=== PATIENT | female | born 1980 | race Caucasian/White ===

== ENCOUNTER 2018-09-30 14:34 | Emergency (ER) | payer SELFPAY ==
--- NOTE | 2018-09-30 15:07 | RAD ---
XR Hand Rt 3 View STANDARD: 09/30/2018 2:45 PM CLINICAL INDICATION: Punched dog in head COMPARISON: None. TECHNIQUE: 3 views. Laterality: Right hand. FINDINGS: Bones: There is a transverse oriented, dorsally angulated, nondisplaced fracture involving the small finger metacarpal shaft. There is slight external rotation of the distal fracture fragment. No additional fractures evident. Joints: Joint spaces are preserved.. Soft Tissue: There is soft tissue swelling overlying the fracture site. IMPRESSION: Angulated midshaft small finger metacarpal fracture.
[2018-09-30] MEDS ORDERED: HYDROcodone/Acetaminophen 5/325 mg Tablet ONE (15:20)
== END 2018-09-30 15:39 | disposition home or self-care (01) ==
LOC: ERS 14:34
DX: S62.356A Nondisplaced fracture of shaft of fifth metacarpal bone, right hand, initial encounter for closed fracture (principal); F17.210 Nicotine dependence, cigarettes, uncomplicated; Y04.0XXA Assault by unarmed brawl or fight, initial encounter
CPT/HCPCS: 26600

== ENCOUNTER 2023-07-27 11:34 | Outpatient (CLI) | payer OTHER | END 2023-07-27 11:35 | disposition home or self-care (01) | LOC: BICRAD 11:34 | PROVIDERS: ATTEND Family Medicine | DX: M54.6 Pain in thoracic spine (principal) | CPT/HCPCS: 72072 ==

== ENCOUNTER → 2024-01-18 | Day surgery (SDC) | payer OTHER ==
[2024-01-17 16:28] VITALS: BMI 21.5
[~2024-01-18] MED LIST: CEFAZOLIN 2 GM VIAL ONE; Dexamethasone 4 mg/ml Vial ONE; EPINEPHrine 1 MG/ML AMP ONE; Famotidine/PF 20 mg/2ml Vial ONE; Ketorolac Tromethamine 30 MG (1 mL) VIAL ONE; Lidocaine 2% PF 5 ML VIAL ONE; Midazolam HCl 2 mg/2 ml Vial ONE; Ondansetron PF 4 MG/2 ML Vial ONE; PROPOFOL 20 ML ONE; Ropivacaine 0.5% HCl/PF (150 MG/30 ML VIAL) ONE; Ropivacaine 2% HCl/PF (20 MG/10 ML VIAL) ONE; Sodium Chloride 0.9% 0 ML ONE; fentaNYL 50 mcg/mL 1 mL Vial ONE
== END ==
LOC: SDC 12:00
PROVIDERS: ATTEND Orthopaedic Surgery
PROC: 0PSJ04Z Reposition Left Radius with Internal Fixation Device, Open Approach (ICD-10-PCS; principal; 2024-01-18)
PROC: 3E0T3BZ Introduction of Anesthetic Agent into Peripheral Nerves and Plexi, Percutaneous Approach (ICD-10-PCS; 2024-01-18)
DX: S52.572A Other intraarticular fracture of lower end of left radius, initial encounter for closed fracture (principal); Z79.899 Other long term (current) drug therapy; Z98.890 Other specified postprocedural states; F17.200 Nicotine dependence, unspecified, uncomplicated; W19.XXXA Unspecified fall, initial encounter; Z90.710 Acquired absence of both cervix and uterus; Z87.59 Personal history of other complications of pregnancy, childbirth and the puerperium
CPT/HCPCS: C1713; J0171; J1100; J1885; J2250; J2405; J2704; J2795; J3010; J3490

== ENCOUNTER 2024-03-11 10:28 | Outpatient (CLI) | payer OTHER | END 2024-03-11 10:29 | disposition home or self-care (01) | LOC: BICRAD 10:28 | PROVIDERS: ATTEND Orthopaedic Surgery | DX: S52.532A Colles' fracture of left radius, initial encounter for closed fracture (principal) ==